=== PATIENT | female | born 1975 | race Caucasian/White ===

== ENCOUNTER 2020-05-12 07:50 | Outpatient (REF) | payer OTHER, SELFPAY | END 2020-05-12 07:51 | disposition home or self-care (01) | LOC: HO.LAB 07:50 | PROVIDERS: PCP Internal Medicine; Visit Provider Internal Medicine | DX: Z20.822 Contact with and (suspected) exposure to COVID-19 (principal) | CPT/HCPCS: 36415; C9803; U0003 ==

== ENCOUNTER 2020-07-02 14:38 | Outpatient (REF) | payer OTHER, SELFPAY | END 2020-07-02 14:39 | disposition home or self-care (01) | LOC: HO.LAB 14:38 | PROVIDERS: Visit Provider Internal Medicine | DX: Z20.822 Contact with and (suspected) exposure to COVID-19 (principal) | CPT/HCPCS: 36415; C9803; U0003; U0005 ==

== ENCOUNTER → 2021-07-06 08:33 | Outpatient (BNVA) | payer OTHER, SELFPAY | PROVIDERS: PCP Internal Medicine; Visit Provider Internal Medicine | DX: S29.012D Strain of muscle and tendon of back wall of thorax, subsequent encounter (principal); X50.3XXD Overexertion from repetitive movements, subsequent encounter | CPT/HCPCS: 99202 ==

== ENCOUNTER → 2021-07-16 08:05 | Outpatient (BNVA) | payer OTHER, SELFPAY | PROVIDERS: PCP Internal Medicine; Visit Provider Internal Medicine | DX: S46.912D Strain of unspecified muscle, fascia and tendon at shoulder and upper arm level, left arm, subsequent encounter (principal); X58.XXXD Exposure to other specified factors, subsequent encounter | CPT/HCPCS: 99213 ==

== ENCOUNTER → 2021-07-28 08:02 | Outpatient (BNVA) | payer OTHER, SELFPAY | PROVIDERS: PCP Internal Medicine; Visit Provider Internal Medicine | DX: S46.912D Strain of unspecified muscle, fascia and tendon at shoulder and upper arm level, left arm, subsequent encounter (principal); X58.XXXD Exposure to other specified factors, subsequent encounter | CPT/HCPCS: 99213 ==

== ENCOUNTER 2021-08-10 16:00 | Outpatient (RCR) | payer OTHER, SELFPAY ==
--- NOTE | 2021-07-27 16:03 | MHC.PT.EP ---
[facility] [place] Office [place] Office [place] Office [address] Jayy Musa [address] [phone] F: [phone] F: [phone] F: [phone] F: [phone] Physical Therapy Plan of Care Date of Evaluation: Date of Surgery: N/A Diagnosis: L shoulder strain Assessment: pt presents to physical therapy with pain, decreased range of motion, decreased strength, impaired functional mobility, impaired postural awareness, and gait deviations. pt is a good candidate for skilled PT due to age, potential remediation of impairments, typical disease/condition progression and prognosis, comorbidities, and motivation. pt would benefit from tailored strengthening and stretching exercise program, functional training, gait training, postural re-training, neuromuscular re-education, modalities as needed for pain, equipment safety demonstration. Frequency and Duration: The patient will be seen 2x/wk for 4 wks Short Term Goals: pt will be I w/ HEP to promote self-management of condition. pt will improve L shoulder abduction by 15 degrees to promote ease in reaching for objects on higher shelves. Transportation Associate Goals: pt will report a statistically significant improvement on self-reported outcome measure, SPADI, to promote return to PLOF. pt will lift a 35# object chest<>4 palette height x5 reps w/ proper form and lifting mechanics w/o verbal cueing to promote full return to work. Treatment Plan: Modalities to reduce pain, spasms and effusion. Manual therapy to restore motion and function. Therapeutic exercise to improve strength and flexibility. Neuromuscular re-education for posture and balance. Therapeutic activities to return to functional activities of daily living. Electronically signed by: Maryan Miguel PT, DPT Please sign and return to therapist. Thank you for your referral.
--- NOTE | 2021-09-15 10:48 | MHC.PT.DC ---
[facility] [place] Office [place] Office [place] Office [address] Jayy Musa 140 [facility] [phone] F: [phone] F: [phone] F: [phone] F: [phone] Physical Therapy Discharge Report Diagnosis: L shoulder strain Date of Surgery: N/A Date of Evaluation: 07/27/21 Date of Discharge: 09/15/21 Treatments to Date: 3 Cancellations to Date: 5 No Shows to Date: 0 Discharge Status: Patient Elected to Stop Discharge Summary: The patient was reporting an improvement of their shoulder pain until they had an MRI on 08/13/21. The patient called to say they re-injured their arm in the MRI machine and has not called to follow-up with any further appointments in nearly four weeks. The patient are discharged from this physical therapy plan of care. Electronically signed by: Maryan Miguel PT, DPT Please sign and return to therapist. Thank you for your referral.
== END 2021-09-15 10:48 | disposition home or self-care (01) ==
LOC: HO.PT 16:00
PROVIDERS: Visit Provider Internal Medicine
DX: S46.912D Strain of unspecified muscle, fascia and tendon at shoulder and upper arm level, left arm, subsequent encounter (principal)
CPT/HCPCS: 97110; 97140; 97161; 97530

== ENCOUNTER 2021-08-11 08:23 | Outpatient (REF) | payer OTHER, SELFPAY ==
--- NOTE | ~2021-08-11 | MR_ITS ---
EXAMINATION: MRI SHOULDER WITHOUT CONTRAST, LEFT CLINICAL INFORMATION: Hyperextended, severe pain with flexion left shoulder. COMPARISON: None TECHNIQUE: MRI of the left shoulder was performed without contrast. FINDINGS: ROTATOR CUFF: Supraspinatus: Mild heterogeneity at the insertion of the middle third portion of the supraspinatus tendon compatible with tendinosis and perhaps small areas of interstitial partial tearing but no measurable defect or tendon retraction. The muscle is normal. The remaining rotator cuff muscles and tendons are normal. BICEPS: Normal. CORACOACROMIAL ARCH: Acromioclavicular joint: There is mild hypertrophic osteoarthritis. There is prominent marrow edema crossing the joint. The undersurface of the acromion is slightly curved without subacromial spur. BURSA: Trace fluid in the subacromial-subdeltoid bursa. LABRUM/CAPSULE: Normal. GLENOHUMERAL JOINT: Normal. 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 Mild subacromial-subdeltoid bursitis. Minimal abnormality of the supraspinatus compatible with tendinosis and perhaps a small area of partial tearing but no measurable defect.
== END 2021-08-11 08:24 | disposition home or self-care (01) ==
LOC: HO.MRI 08:23
PROVIDERS: Visit Provider Internal Medicine
DX: M25.512 Pain in left shoulder (principal)
CPT/HCPCS: 73221

== ENCOUNTER → 2021-08-11 09:32 | Outpatient (BNVA) | payer OTHER, SELFPAY | PROVIDERS: PCP Internal Medicine; Visit Provider Physician Assistant Medical | DX: S46.912D Strain of unspecified muscle, fascia and tendon at shoulder and upper arm level, left arm, subsequent encounter (principal); X58.XXXD Exposure to other specified factors, subsequent encounter | CPT/HCPCS: 99213; J1885 ==

== ENCOUNTER 2023-10-23 01:02 | Emergency (ER) | payer BC, SELFPAY ==
--- NOTE | ~2023-10-23 | XR_ITS ---
EXAMINATION: XR ANKLE, RIGHT CLINICAL INFORMATION: Fall. Pain. COMPARISON: None available. TECHNIQUE: AP, lateral, and mortise views of the right ankle. FINDINGS: No fracture. Alignment is anatomic. No erosions. Joint spaces are maintained. Soft tissues are normal. XR/XR ankle RT 2V IMPRESSION: No significant abnormality identified.
[2023-10-23 01:14] VITALS: BP 124/86; PULSE 93; RESP 18; TEMP 37.2; O2SAT 99; BMI 21.1
[2023-10-23] MEDS: Ibuprofen 600 MG TABLET PO (01:20)
--- NOTE | 2023-10-23 02:32 | ED.GENADULT ---
HPI - General Adult General Chief complaint: Extremity Injury, Lower Stated complaint: right ankle broken? Time Seen by Provider: 10/23/23 02:32 History of Present Illness ED Provider: García BURNS narrative: The patient is a 48-year-old who was at the [facility] this evening. She was walking and stepped into an uneven piece of ground. She inverted her right ankle and felt a pop. She has had pain with weight-bearing ever since. The pain is on the region of the lateral malleolus. Related Data Allergies Allergy/AdvReac Type Severity Reaction Status Date / Time No Known Allergies Allergy Unverified 10/23/23 01:17 [No Known Allergies*] Review of Systems Review of Systems: Yes all other systems are reviewed and are negative [facility] Social History Social History Advance Directives: No Advance Directives Information Provided: No Physical Exam ED Vital Signs: Vital Signs - 24 hr 10/23/23 01:14 Temperature 98.9 F Pulse Rate 93 Respiratory Rate 18 Blood Pressure 124/86 Pulse Oximetry 99 Oxygen Delivery Method Room Air BMI result Body Mass Index 21.1 Const Other: The patient is a slim, athletic 48-year-old who was awake and alert, pleasant cooperative. HENMT Other: Appearance of the face is unremarkable. Face is symmetrical. Mucous membranes moist. Eyes Other: Pupils are round equal, conjunctivae are clear Resp Effort & Inspection: normal respiratory effort Skin Other: The skin of the ankle is intact. No significant soft tissue swelling is apparent. Neuro Other: The patient is awake, alert, oriented, appropriate. Pleasant and cheerful. Normal mental status. The patient has normal motor and sensory function of the right foot. Extrem Other: There is no obvious deformity to the right ankle. Patient seems to have pain with inversion of the ankle. The patient does not really have bony tenderness of the lateral malleolus or the bones of the foot just below the lateral malleolus. She is able to plantar flex and dorsiflex the foot. She has pain with inversion of the ankle. Medications Administered Discontinued Medications Generic Name Dose Route Start Last Admin Trade Name Freq PRN Reason Stop Dose Admin Ibuprofen 600 mg 10/23/23 01:18 10/23/23 01:20 Ibuprofen 600 Mg Tablet PO 10/23/23 01:19 600 mg ONCE ONE Administration Medical Decision Making Medical Decision Making [facility] Narrative: The patient has an athletic 48-year-old who sustained a right ankle injury when she stepped in a hole and inverted the ankle. Her x-ray is negative. Her physical exam is quite benign as well although she has obvious discomfort when she weight bears. She will be given crutches and an Aircast and advised to rest the foot and keep it elevated with ice for the next several days. She should follow up with the regular doctor. She was also given the name and number of the orthopedic office on-call in case her PCP wants her to see an orthopedist. Discharge Plan Discharge Clinical Impression: Right ankle sprain Patient Disposition: Home, Self-Care Instructions: Ankle Sprain (ED) Additional Instructions: The x-ray of your right ankle looks good. You seem to have a sprain of the ankle. Please plan on resting and taking it easy for the next few days. As much as you are able to keep the right foot elevated. Use ice for 15-20 minutes several times a day. Use the crutches provided so that you do not put any weight on the ankle for a few days. Use the Aircast for support. If you feel you are improving you may start to put some weight on the ankle but still use the crutches to moderate the amount of weight on the ankle. Please follow up with your regular doctor in the next week or 2 for a 2nd opinion. If your regular doctor wants you to see an orthopedist I have also provided the contact information for the Orthopedic office on-call today. You may use ibuprofen and acetaminophen as needed for discomfort. Return to the emergency room if significantly worse. Referrals: Umang Shaw MD [Physician] - (right ankle sprain) Shoshana Mendiola MD [Physician] - (ankle sprain) Stand Alone Forms: Work/School Release Print Language: Polish
--- NOTE | 2023-10-23 04:04 | PC.NURSE ---
aircast given per order, pt refused crutches. aware. pt ambulatory with steady gait.
[2023-10-23 04:11] VITALS: BP 124/86; PULSE 93; RESP 18; TEMP 37.2; O2SAT 99
--- NOTE | 2023-10-23 04:11 | PC.NURSE ---
at time of d/c pt in agreement to use crutches, crutches provided pt demonstrates proper use.
== END 2023-10-23 04:12 | disposition home or self-care (01) ==
PROVIDERS: Emergency Provider Emergency Medicine; PCP Internal Medicine
DX: S93.401A Sprain of unspecified ligament of right ankle, initial encounter (principal); X58.XXXA Exposure to other specified factors, initial encounter; Y93.9 Activity, unspecified; Y92.9 Unspecified place or not applicable; Y99.9 Unspecified external cause status
CPT/HCPCS: 73600; 99283; 99284

== ENCOUNTER → 2023-12-23 14:41 | Outpatient (BNVA) | payer OTHER, SELFPAY | PROVIDERS: PCP Internal Medicine; Visit Provider Physician Assistant Medical | DX: S57.81XA Crushing injury of right forearm, initial encounter (principal); S51.811A Laceration without foreign body of right forearm, initial encounter; W31.9XXA Contact with unspecified machinery, initial encounter; Z23 Encounter for immunization | CPT/HCPCS: 73090; 99204 ==